=== PATIENT | female | born 1980 | race Caucasian/White ===

== ENCOUNTER → 2016-07-01 | Outpatient (CLI) | payer OTHER ==
[~2016-07-01] MED LIST: BACTRIM DS 8001 TA1 PO; BACTROBAN OINT0.9 GM T; BIRTH CONTROL1 EACH PO; FLEXERIL5 MG PO; IBUPROFEN600 MG PO; LOPERAMIDE HCL2 MG PO; MOTRIN800 MG PO; NORVASC10 MG PO; Percocet 325 MG1 TAB PO
== END | disposition home or self-care (01) ==
LOC: CT 14:00
DX: R51 Headache (principal)

== ENCOUNTER → 2018-05-01 | Outpatient (CLI) | payer OTHER | END | disposition home or self-care (01) | LOC: US 10:51 | DX: K80.20 Calculus of gallbladder without cholecystitis without obstruction (principal); K76.0 Fatty (change of) liver, not elsewhere classified ==

== ENCOUNTER 2021-11-07 20:47 | Emergency (ER) | payer OTHER ==
[~2021-11-07] VITALS: Ht 175.2 cm; Wt 104.3 kg
[2021-11-07 21:30] VITALS: BP 119/75
== END 2021-11-07 21:50 | disposition left against medical advice (07) ==
LOC: ED 20:47
DX: F15.129 Other stimulant abuse with intoxication, unspecified (principal); Z90.49 Acquired absence of other specified parts of digestive tract

== ENCOUNTER 2021-11-07 22:32 | Emergency (ER) | payer OTHER ==
[~2021-11-07] VITALS: Ht 175.2 cm; Wt 113.4 kg
[2021-11-08 06:46] VITALS: BP 122/54
[2021-11-08 09:11] LABS: URINE AMPHETAMINES > 1000 (1000ng/ml); URINE BARBITURATES < 200 (200ng/ml); URINE BENZODIAZEPINES < 200 (200ng/ml); URINE CANNABINOIDS (THC) > 50 (50ng/ml); URINE COCAINE < 300 (300ng/ml); URINE METHADONE < 300 (300ng/ml); URINE OPIATES < 300 (300ng/ml); URINE PHENCYCLIDINE < 25 (25ng/ml)
== END 2021-11-08 09:52 | disposition home or self-care (01) ==
LOC: ED 22:32
PROVIDERS: Family Medicine
DX: F43.20 Adjustment disorder, unspecified (principal); F19.10 Other psychoactive substance abuse, uncomplicated; F15.129 Other stimulant abuse with intoxication, unspecified; Z90.49 Acquired absence of other specified parts of digestive tract

== ENCOUNTER → 2023-01-02 | Outpatient (CLI) | payer OTHER ==
[2023-01-02 10:21] LABS: BASO # 0.1 10*3/uL (0.0-0.1); BASO % 0.6 % (0.0-1.0); EOS # 0.2 10*3/uL (0.0-0.4); LYMPH # 2.8 10*3/uL (1.3-4.4); LYMPH % 27.4 % (27.0-41.0); MEAN CELL VOLUME 90.7 fl (81.0-99.0); MEAN CORPUSCULAR HGB 29.7 pg (27.0-31.0); MEAN CORPUSCULAR HGB CONC 32.8 g/dl (33.0-37.0); MONO # 0.9 10*3/uL (0.1-1.0); MONO % 8.5 % (3.0-9.0); NEUT # 6.2 10*3/uL (2.3-7.9); NEUT % 60.7 % (47.0-73.0); PLATELET COUNT AUTOMATED 356 10*3/uL (130-400); RED BLOOD COUNT 5.18 10*6/uL (4.10-5.10); RED CELL DISTRI WIDTH 13.2 % (0-14.5); RETICULOCYTE % 1.66 % (0.50-2.50); WHITE BLOOD COUNT 10.3 10*3/uL (4.8-10.8)
[2023-01-02 10:52] LABS: ALKALINE PHOSPHATASE 78 U/L (46-116); BUN 17 mg/dl (9-23); CHLORIDE 104 mmol/L (98-107); CHOLESTEROL 184 mg/dL (<200); GAMMA GLUTAMYL TRANSPEPTIDASE 32 U/L (0-73); LDL CHOLESTEROL 120 mg/dL (9-159); POTASSIUM 3.8 mmol/L (3.4-5.1); SGPT/ALT 24 U/L (5-49); T3 UPTAKE 26.9 % (22.4-36.7); THYROXINE (T4) TOTAL 8.1 ug/dl (4.5-10.9); TOTAL PROTEIN 8.2 gm/dL (6.0-8.0); TRIGLYCERIDES 109 mg/dl (<150); VITAMIN D, 25-HYDROXY 21.6 ng/mL (30-100)
== END | disposition home or self-care (01) ==
LOC: LAB 09:20
PROVIDERS: ATTEND Family Medicine
DX: E55.9 Vitamin D deficiency, unspecified (principal); R79.89 Other specified abnormal findings of blood chemistry; R53.83 Other fatigue; E78.5 Hyperlipidemia, unspecified